=== PATIENT | male | born 1950 | race Caucasian/White ===

== ENCOUNTER 2017-08-01 12:15 | Emergency (ER) | payer MEDICARE, SELFPAY ==
[2017-08-01 12:17] VITALS: BP 191/90; PULSE 72; RESP 20; TEMP 36.9; O2SAT 97; BMI 35.6
[2017-08-01] MEDS: Ondansetron ODT 4 MG Tablet PO (12:47)
[2017-08-01] MEDS: HYDROcodone Bitartrate/Apap 5/325 Tablet PO (12:47)
--- NOTE | 2017-08-01 12:50 | RAD_ITS ---
STUDY: X-RAY CHEST REASON FOR EXAM: Male, 67 years old. Cough. TECHNIQUE: PA and lateral views of the chest. COMPARISON: None. FINDINGS: Minimal increased markings at the lung bases slightly more prominent in the lingular segment of the left upper lobe suggestive of bibasilar atelectasis. There is no demonstrated pleural abnormality. There is borderline cardiomegaly. Normal mediastinum and carl. Normal visualized pulmonary arteries. There is atherosclerotic tortuosity of the aortic arch and descending thoracic aorta. There are diffuse degenerative changes of the visualized thoracic spine. Normal visualized ribs, clavicles, and shoulders. There is no demonstrated abnormality of the visualized soft tissue structures of the upper abdomen. RAD/Chest PA and Lateral IMPRESSION: Findings suggest a mild degree of bibasilar linear atelectasis. Electronically Signed: John Mejia MD at 13:36 EDT Tel [phone], Service support ,
--- NOTE | 2017-08-01 12:50 | RAD_ITS ---
STUDY: X-RAY - LEFT FEMUR REASON FOR STUDY: Male, 67 years old. Lateral femoral pain following injury. TECHNIQUE: Radiological exam, femur, minimum 2 views COMPARISON: None. FINDINGS: Normal visualized femur. Normal visualized soft tissue structure. RAD/Femur Min 2 Views IMPRESSION: Normal x-ray examination of the femur. Electronically Signed: John Mejia MD at 13:37 EDT Tel [phone], Service support ,
--- NOTE | 2017-08-01 13:43 | ED.DCSUM_ITS ---
- ER Visit Summary Date of Service: 08/01/17 Chief Complaint: Left thigh pain History of Present Illness: The patient is a [address] Sharma. Patient reports that he felt he reports approximately 1 year ago and has had swelling to the proximal left thigh since that time. 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 States 2 weeks ago he fell out of his bed and that the areas been more swollen since then. He has pain Zeta 10 with movement 3 out of 10 at rest. Is not taking anything for pain. Review of systems patient reports that he has a cough productive white sputum without blood. Physical Examination: Vitals: Stable. Afebrile. General: Well-nourished and well-developed. Head: Normocephalic atraumatic. Neck: Supple, no lymphadenopathy. No JVD. Nontender. Cardiovascular: Regular rate and rhythm. No murmurs. Respiratory: No respiratory distress. Clear to auscultation bilaterally. Abdominal: Soft, nontender, nondistended, normal bowel sounds. No guarding, rebound, or peritoneal signs. Back: Nontender. Extremities: Approximately 7 cm x 7 9 cm firm mass to the lateral side of the proximal left thigh. There is overlying bruising. There is no erythema or fluctuance to suggest fluid collection.. Skin: Normal color, no rash. Neurologic: Alert and oriented ?3. Cranial nerves II through XII are intact. Normal strength and sensation. Psych: Normal affect. Test Results: Chest x-ray shows atelectasis but no infiltrate. X-ray of his left femur shows no fracture or acute disease. Emergency Department Course and Treatment: Patient is treated with [place] and Zofran. He is resting comfortably. Treatment Plan: To be discharged with [place] and instructed to follow-up Dr. Sharma in 1 week if not improving. Return to the emergency department for any worsening symptoms. Disposition: To home in improved and stable condition. Impression: 1. Myositis ossificans left eye. 2. URI. This note was generated with Pix[employer]D dictation software. It may contain incorrect words, spelling, and punctuation that were not noted in review of the chart prior to signing ED Disposition - Plan for ED Patient: Disposition: Home or Assisted Living Chief Complaint: Lower Extremity Injury Instructions: ED Hematoma Prescriptions: Hydrocodone Bitart/Apap 5-325 [[place] 5/325] 1 - 2 tablet PO Q4H PRN PRN 5 Days # 20 tablet PRN Reason: Pain Ondansetron [Zofran Odt] 4 mg PO Q8H PRN PRN #10 tablet PRN Reason: Nausea Docusate Sodium [Colace] 100 mg PO DAILY #20 capsule Referrals: Taye Sharma MD [Primary Care Provider] - 1 Week if not improving
[2017-08-01 14:30] VITALS: BP 135/74
== END 2017-08-01 14:30 | disposition home or self-care (01) ==
PROVIDERS: Emergency Provider Emergency Medicine; Family Provider Family Medicine; PCP Family Medicine
DX: M61.552 Other ossification of muscle, left thigh (principal); J06.9 Acute upper respiratory infection, unspecified; J45.909 Unspecified asthma, uncomplicated; K21.9 Gastro-esophageal reflux disease without esophagitis; I69.351 Hemiplegia and hemiparesis following cerebral infarction affecting right dominant side; I10 Essential (primary) hypertension; E11.9 Type 2 diabetes mellitus without complications
CPT/HCPCS: 71046; 73552; 99282

== ENCOUNTER 2017-08-04 20:52 | Emergency (ER) | payer MEDICARE, SELFPAY ==
[2017-08-04 20:53] VITALS: BP 193/107; PULSE 79; RESP 19; TEMP 36.1; O2SAT 95; BMI 35.4
--- NOTE | 2017-08-04 20:59 | CT_ITS ---
STUDY: CT BRAIN WITHOUT CONTRAST REASON FOR EXAM: Male, 67 years old. Headache, hypertension RADIATION DOSAGE (If Supplied By Facility): CTDIvol = ( 44.99 ) mGy, DLP = ( 796.11 ) mGycm TECHNIQUE: Transaxial CT imaging of the brain was performed without administration of intravenous contrast material. Sagittal and coronal images are reformatted. Individualized dose optimization techniques were used for this CT. COMPARISON: 01/24/2017. FINDINGS: Normal soft tissue structures. Normal calvarium. There is mild cerebral atrophy with widening of the extra-axial spaces and ventricular dilatation. Stable ex vacuo dilatation of the occipital horn of the left lateral ventricle with encephalomalacia. There are areas of decreased attenuation within the white matter tracts of the supratentorial brain, consistent with microvascular disease changes. Normal basal ganglia and thalami. Normal brainstem. Normal cerebellum. There is no intracranial hemorrhage. There are no findings of an acute ischemic infarction. Normal visualized paranasal sinuses. CT/Brain/Head without Contrast IMPRESSION: Chronic involutional changes of the brain. No acute intracranial process. Electronically Signed: Danilo Morrison DO at 21:51 EDT , Service support ,
--- NOTE | 2017-08-04 21:00 | EKG12_ITS ---
Test Reason : CHEST PAIN Blood Pressure : / mmHG Vent. Rate : 071 BPM Atrial Rate : 071 BPM P-R Int : 184 ms QRS Dur : 106 ms QT Int : 414 ms P-R-T Axes : 042 -07 067 degrees QTc Int : 449 ms Normal sinus rhythm Nonspecific ST abnormality Abnormal ECG Confirmed by ALEK DE SOUZA ([id number]), commercial production editor FABIENNE JOLLEY ([id number]) on 08/07/2017 1:27:52 PM Referred By: EUGENE Confirmed By:ALEK DE SOUZA
[2017-08-04 21:26] LABS: Absolute Lymphocyte Count 2.04 X10^3/ul (0.83-4.51); Absolute Neutrophil Count 4.5 X10^3/uL (2.0-7.7); Basophil# 0.04 X10^3/uL; Basophil% 0.5 % (0-1); Eosinophil# 0.84 X10^3/uL; Eosinophils% 10.3 % (0-5); Hematocrit 43.8 % (40-54); Lymphocyte # 2.04 X10^3/ul (4.0); Lymphocyte % 24.9 % (19-41); Mean Corp Hgb Conc 34.2 g/gl (32-36); Mean Corpuscular Hgb 29.2 pg (27.0-32.0); Mean Corpuscular Volume 85.2 fL (80-94); Mean Platelet Vol. 10.5 fl (6.2-12.0); Monocyte# 0.72 X10^3/uL; Monocyte% 8.8 % (0-10); Neutrophil # 4.54 X10^3/uL (2.7-7.7); Neutrophil % 55.4 % (47-70); Platelet Count 238 K/mm3 (150-450); RBC Distribution Width CV 12.7 % (11.6-14.6); RBC Distribution Width SD 38.8 fl (35.1-43.9); Red Blood Count 5.14 M/mm3 (4.6-6.2); White Blood Count 8.2 K/mm3 (4.4-11.0)
[2017-08-04 21:27] LABS: POSITIVE COUNT NO; POSITIVE DIFFERENTIAL NO; POSITIVE MORPHOLOGY NO
--- NOTE | 2017-08-04 21:30 | RAD_ITS ---
STUDY: X-RAY CHEST REASON FOR EXAM: Male, 67 years old. Hypertension TECHNIQUE: Frontal and lateral views of the chest. COMPARISON: 08/01/2017. FINDINGS: The lungs are expanded. Unchanged hazy lingular opacity. There is no demonstrated pleural abnormality. Normal size heart. Normal mediastinum and carl. Normal visualized pulmonary arteries. Normal visualized aortic arch and descending thoracic aorta. Normal visualized thoracic spine. Normal visualized ribs, clavicles, and shoulders. There is no demonstrated abnormality of the visualized soft tissue structures of the upper abdomen. RAD/Chest PA and Lateral IMPRESSION: Lingular atelectasis/infiltrate. No significant change. Electronically Signed: Danilo Morrison DO at 21:57 EDT , Service support ,
[2017-08-04 21:34] LABS: International Normalized Ratio 0.9; Prothrombin Time (Protime)PT. 12.4 SECONDS (11.7-14.9)
[2017-08-04 21:35] LABS: Partial Thromboplast Time 28.4 Seconds (24.1-36.2)
[2017-08-04 21:47] LABS: Anion Gap 7 (5-15); BUN 20 mg/dL (7-18); BUN/Creat Ratio 21.9 RATIO (10-20); Chloride 104 mmol/L (98-107); Creatinine, Serum 0.91 mg/dL (0.70-1.30); EST Glomerular Filtration Rate 88 mL/min (>60); Est Glom Filt Rate - Afr Amer 106 mL/min (>60); Estimated Creatinine Clearance 72.64 ml/min; Glucose 200 mg/dL (74-106); Potassium 3.6 mmol/L (3.5-5.1); Sodium Level 140 mmol/L (136-145)
[2017-08-04 22:05] VITALS: BP 149/70; PULSE 65; RESP 15
[2017-08-04 22:15] LABS: Bedside Glucose 201 mg/dL (70-110)
[2017-08-04 22:37] VITALS: BP 173/76; PULSE 65; RESP 12; O2SAT 95
[2017-08-04 22:43] VITALS: O2SAT 94
--- NOTE | 2017-08-04 22:45 | NURSING ---
PATIENT HAD PAST STROKE IN OCTOBER OF LAST YEAR. DOCTOR AT THE BEDSIDE CURRENTLY. NIH IS 3 FROM RESIDUAL AFFECTS OF STROKE.
--- NOTE | 2017-08-04 22:48 | ED.VISSUMM ---
- ER Visit Summary Date of Service: 08/04/17 Chief Complaint: Acute on chronic hypertension with cephalgia History of Present Illness: The patient is a 67 M prior stroke in 2017. Treated for hypertension. On Plavix and aspirin. Reportedly patient had an elevated blood pressure this evening. Had a headache associated with it. And some blurred vision. The headache and blurred vision both totally resolved. He had no trouble moving his arms or legs. He had no slurred speech. Due to the acuity and volume in emergency department nurses started triage protocol orders. Physical Examination: Well-appearing older male. Initial blood pressure 149/70 temperature 96.1 heart rate 65. Pulse ox 95% room air no signs of hypoxia. He is in no acute distress. States is feeling better. HEENT exam unremarkable. Pupils round reactive light. No facial droop. Normal speech. Lungs clear to auscultation bilaterally. Heart regular rhythm no murmur. Abdomen soft nontender. He is moving all 4 extremities. They are neurovascularly intact. 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 Dorsi plantar flexion intact. Neurologically is awake and alert. No focal motor deficits. Fingertip to nose within normal limits bilaterally. Dorsi plantar flexion intact. Currently his NIH score is 0. Test Results: Nurses started protocol orders in triage. CBC normal. BMP unremarkable. Glucose 200. PT/INR normal. EKG sinus rhythm rate is 71 with no acute abnormality. Chest x-ray showed chronic changes no acute process. CAT scan of his brain showed no bleed. No acute stroke. This is read by the radiologist and reviewed by me. Emergency Department Course and Treatment: On exam the patient is doing well. His neurologic exam is completely normal. I had long discussion with he and family. They are comfortable with him being discharged home. His current blood pressure is 173/71. He takes blood pressure medication both in the morning and in the evening will take his second dose today when he goes home. They are going to log his blood pressure twice daily and follow-up with his primary care physician Dr. Fox for further evaluation next week. Treatment Plan: Discharge to home. Disposition: Discharge Impression: Acute on chronic hypertension with acute cephalgia that resolved History of prior CVA History of ehg-fvrezqk-vnhpwxsne diabetes This note was generated with OneIDation software. It may contain incorrect words, spelling, and punctuation that were not noted in review of the chart prior to signing ED Disposition - Plan for ED Patient: Chief Complaint: Hypertension Referrals: Taye Sharma MD [Primary Care Provider] -
--- NOTE | 2017-08-04 22:52 | ED.DCSUM_ITS ---
- ER Visit Summary Date of Service: 08/04/17 Chief Complaint: Acute on chronic hypertension with cephalgia History of Present Illness: The patient is a 67 M prior stroke in 2017. Treated for hypertension. On Plavix and aspirin. Reportedly patient had an elevated blood pressure this evening. Had a headache associated with it. And some blurred vision. The headache and blurred vision both totally resolved. He had no trouble moving his arms or legs. He had no slurred speech. Due to the acuity and volume in emergency department nurses started triage protocol orders. Physical Examination: Well-appearing older male. Initial blood pressure 149/70 temperature 96.1 heart rate 65. Pulse ox 95% room air no signs of hypoxia. He is in no acute distress. States is feeling better. HEENT exam unremarkable. Pupils round reactive light. No facial droop. Normal speech. Lungs clear to auscultation bilaterally. Heart regular rhythm no murmur. Abdomen soft nontender. He is moving all 4 extremities. They are neurovascularly intact. He has 5 out of 5 brazer furnace strength. Dorsi plantar flexion intact. Neurologically is awake and alert. No focal motor deficits. Fingertip to nose within normal limits bilaterally. Dorsi plantar flexion intact. Currently his NIH score is 0. Test Results: Nurses started protocol orders in triage. CBC normal. BMP unremarkable. Glucose 200. PT/INR normal. EKG sinus rhythm rate is 71 with no acute abnormality. Chest x-ray showed chronic changes no acute process. CAT scan of his brain showed no bleed. No acute stroke. This is read by the radiologist and reviewed by me. Emergency Department Course and Treatment: On exam the patient is doing well. His neurologic exam is completely normal. I had long discussion with he and family. They are comfortable with him being discharged home. His current blood pressure is 173/71. He takes blood pressure medication both in the morning and in the evening will take his second dose today when he goes home. They are going to log his blood pressure twice daily and follow-up with his primary care physician Dr. Fox for further evaluation next week. Treatment Plan: Discharge to home. Disposition: Discharge Impression: Acute on chronic hypertension with acute cephalgia that resolved History of prior CVA History of xgq-autucva-qqmbblhqi diabetes This note was generated with [employer] Heraldation software. It may contain incorrect words, spelling, and punctuation that were not noted in review of the chart prior to signing ED Disposition - Plan for ED Patient: Chief Complaint: Hypertension Referrals: Taye Sharma MD [Primary Care Provider] -
--- NOTE | 2017-08-04 22:52 | ED.DEP ---
ED Disposition - Plan for ED Patient: Chief Complaint: Hypertension Instructions: ED Hypertension Conf Out Of Control Referrals: Taye Sharma MD [Primary Care Provider] - 5-7 Days Additional Instructions: Take your normal blood pressure medications tonight prior to going to bed. Log your blood pressures twice daily and follow-up with Dr. Sharma with these readings so that he may appropriately manage her blood pressure medications. He may or may not need to adjust the dosage.
[2017-08-04 23:01] VITALS: BP 163/70; PULSE 62; PULSE 63; RESP 14; RESP 15; O2SAT 94; O2SAT 95
== END 2017-08-04 23:18 | disposition home or self-care (01) ==
LOC: ED 23:09
PROVIDERS: Emergency Provider Emergency Medicine; Family Provider Family Medicine; PCP Family Medicine
DX: I10 Essential (primary) hypertension (principal); R51 Headache; H53.8 Other visual disturbances; E11.9 Type 2 diabetes mellitus without complications; R05 Cough; Z86.73 Personal history of transient ischemic attack (TIA), and cerebral infarction without residual deficits; R94.31 Abnormal electrocardiogram [ECG] [EKG]
CPT/HCPCS: 70450; 71046; 80048; 82962; 85025; 85610; 85730; 93005; 99284; A4216

== ENCOUNTER 2017-08-28 14:55 | Emergency (ER) | payer MEDICARE, SELFPAY ==
[2017-08-28 14:56] VITALS: BP 149/88; PULSE 99; RESP 16; TEMP 36.7; O2SAT 95; BMI 34.4
--- NOTE | 2017-08-28 15:16 | EKG12_ITS ---
Test Reason : GENERAL ILLNESS Blood Pressure : / mmHG Vent. Rate : 099 BPM Atrial Rate : 099 BPM P-R Int : 170 ms QRS Dur : 098 ms QT Int : 360 ms P-R-T Axes : 019 -21 047 degrees QTc Int : 462 ms Normal sinus rhythm Normal ECG Confirmed by SHIRLEY CORNEJO, RIA ([id number]), acquisition editor FABIENNE JOLLEY ([id number]) on 08/31/2017 1:55:29 PM Referred By: AZAR Confirmed By:RIA WATSON MD
--- NOTE | 2017-08-28 15:16 | CT_ITS ---
STUDY: CT BRAIN WITHOUT CONTRAST REASON FOR EXAM: Male, 67 years old. DIZZINESS RADIATION DOSAGE (If Supplied By Facility): CTDIvol = ( 44.99 ) mGy, DLP = ( 829.85 ) mGycm TECHNIQUE: Transaxial CT imaging of the brain was performed without administration of intravenous contrast material. COMPARISON: 08.04.17 FINDINGS: Normal soft tissue structures. Normal calvarium. There are calcifications around the carotid artery. These are noted in the cavernous carotid arteries. Old left occipital lobe infarct. There is mild cerebral atrophy with widening of the extra-axial spaces and ventricular dilatation. There are areas of decreased attenuation within the white matter tracts of the supratentorial brain, consistent with microvascular disease changes. Normal basal ganglia and thalami. Normal brainstem. There is mild cerebellar atrophy. There is no intracranial hemorrhage. There are no findings of an acute ischemic infarction. Normal visualized paranasal sinuses. CT/Brain/Head without Contrast IMPRESSION: Chronic involutional changes of the brain. There are no acute findings. Electronically Signed: Filiberto Sawant MD at 17:17 EDT , Service support ,
--- NOTE | 2017-08-28 15:16 | RAD_ITS ---
STUDY: X-RAY CHEST REASON FOR EXAM: Male, 67 years old. Dizziness. TECHNIQUE: Single AP portable view of the chest. COMPARISON: Comparison is made with prior study dated August 04, 2017. FINDINGS: There is elevation of the right hemidiaphragm. Scattered calcified granulomas. No acute abnormality is seen. There is no demonstrated pleural abnormality. Normal size heart. Normal mediastinum and carl. Normal visualized pulmonary arteries. Normal visualized aortic arch and descending thoracic aorta. There are diffuse degenerative changes of the visualized thoracic spine. Normal visualized ribs, clavicles, and shoulders. There is no demonstrated abnormality of the visualized soft tissue structures of the upper abdomen. RAD/Chest 1 View (Portable) IMPRESSION: No acute abnormality is seen. Electronically Signed: John Mejia MD at 15:38 EDT Tel [phone], Service support ,
--- NOTE | 2017-08-28 15:17 | CT_ITS ---
STUDY: CT ABDOMEN AND PELVIS WITH CONTRAST REASON FOR EXAM: Male, 67 years old. ABD PAIN, LUMP NEAR LEFT HIP[ RADIATION DOSAGE (If Supplied By Facility): CTDIvol = ( 19.35 ) mGy, DLP = ( 1469.15 ) mGycm TECHNIQUE: Transaxial images were obtained from the dome of the diaphragm to the symphysis pubis without oral contrast. 100ML ml of Isovue 300 contrast was administered. Sagittal and coronal images were reconstructed. Individualized dose optimization techniques were used for this CT. COMPARISON: None. FINDINGS: There are multiple nodules in the right midlung and lower lobe. The largest measures 24 mm. The visualized portions of the heart are within normal limits. Normal liver. Normal gallbladder and extrahepatic biliary system. Normal spleen. Normal pancreas. Normal bilateral adrenal glands. Normal right kidney. Normal left kidney. Normal visualized stomach. Normal small intestine. There are multiple colonic diverticula consistent with diverticulosis. There is non-visualization of the appendix. There is diffuse atherosclerotic calcification of the abdominal aorta, without a demonstrated aneurysm. Normal inferior vena cava. Normal retroperitoneum. Normal urinary bladder. There is enlargement of the prostate gland. Degenerative findings of the hips. There are bilateral inguinal hernias containing fat. There is no bowel involvement. There is no incarceration. There is no findings suggesting that this is causing a bowel obstruction. There are diffuse degenerative changes of the visualized lumbar spine. There is a heterogeneously enhancing mass in the soft tissue of the left hip. This measures 97 x [address]/Abdomen/Pelvis W IV Cont ONLY IMPRESSION: There are multiple lesions noted in the lung which are likely related to metastatic disease. There is a large mass in the left hip soft tissue concerning for a neoplasm. This may be a sarcoma. N.B. : The above information has been verbally conveyed by Filiberto Sawant MD to Chandler Flanagan on 08/28/2017 17:42:58 (ET). Electronically Signed: Filiberto Sawant MD at 17:37 EDT , Service support , N.B. : The above information has been verbally conveyed by Filiberto Sawant MD to Chandler Flanagan on 08/28/2017 17:42:58 (ET).
--- NOTE | 2017-08-28 15:29 | ED.DCSUM_ITS ---
- ER Visit Summary Date of Service: 08/28/17 Chief Complaint: Multiple complaints History of Present Illness: The patient is a 67 M results with nausea, vomiting , diarrhea, dizziness, and sweats. Symptoms started this morning. He is also seeing spots in front of his eyes. This affects both eyes and all joseph of vision. He thinks this is related to high blood pressure. He also reports a left upper thigh mass, and this was imaged several months ago and it was thought to be myositis ossificans. History of stroke and is on blood thinners, and so surgeons did not feel it was prudent to operate on this mass. He denies any focal weakness or numbness today. Denies any new neurologic symptoms otherwise. Denies chest pain or shortness of breath. Physical Examination: Blood pressure 149/88. Otherwise vitals unremarkable. Afebrile. Skin appears normal without diaphoresis or pallor. Heart regular rate and rhythm. Lungs clear bilaterally. Abdomen soft and nontender. Left proximal lateral thigh shows a softball sized mass with mild ecchymosis. Skin is intact. He is neurovascular intact distally. No focal or lateralizing neurologic abnormalities grossly. Test Results: EKG, lab work, and imaging pending at the time of dictation. Emergency Department Course and Treatment: Patient was treated with fluids and Zofran while awaiting results. Lab work was all fairly unremarkable except his lipase is 671. Head CT showed chronic changes. Chest x-ray was unremarkable. CT abdomen and pelvis showed a left upper leg mass concerning for sarcoma. There is also concern for metastatic disease to his lung bases. Talked with orthopedics here. We are unable to care for a patient with a soft tissue malignancy appropriately at this facility. I am also concerned because he has this nausea, vomiting, diarrhea, and dizziness. His lipase is elevated. I believe he will need a medical admission either way. I spoke with the patient and his family. They requested [facility]. The hospitalist, Dr. Joseph, accepted the patient and they will consult orthopedics. Treatment Plan: As above Disposition: Transfer Impression: 1. 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 Elevated lipase This note was generated with [employer].ruation software. It may contain incorrect words, spelling, and punctuation that were not noted in review of the chart prior to signing ED Disposition - Plan for ED Patient: Disposition: [facility] Chief Complaint: General Illness Referrals: Taye Sharma MD [Primary Care Provider] -
[2017-08-28] MEDS: 0.9% Normal Saline 1,000 ML 1000 ML IV (15:50)
[2017-08-28] MEDS: Ondansetron 4 MG/2 ML Vial IV ×2 (15:51→20:38)
[2017-08-28 15:59] LABS: Absolute Lymphocyte Count 0.69 X10^3/ul (0.83-4.51); Absolute Neutrophil Count 9.6 X10^3/uL (2.0-7.7); Basophil# 0.02 X10^3/uL; Basophil% 0.2 % (0-1); Eosinophil# 0.69 X10^3/uL; Eosinophils% 5.9 % (0-5); Hematocrit 47.8 % (40-54); Hemoglobin 16.1 g/dl (13.0-16.5); Lymphocyte # 0.69 X10^3/ul (4.0); Lymphocyte % 5.9 % (19-41); Mean Corp Hgb Conc 33.7 g/gl (32-36); Mean Corpuscular Hgb 28.8 pg (27.0-32.0); Mean Corpuscular Volume 85.5 fL (80-94); Mean Platelet Vol. 10.5 fl (6.2-12.0); Monocyte# 0.74 X10^3/uL; Monocyte% 6.3 % (0-10); Neutrophil # 9.62 X10^3/uL (2.7-7.7); Neutrophil % 81.5 % (47-70); Platelet Count 213 K/mm3 (150-450); RBC Distribution Width SD 40.4 fl (35.1-43.9); Red Blood Count 5.59 M/mm3 (4.6-6.2); White Blood Count 11.8 K/mm3 (4.4-11.0)
[2017-08-28 16:01] LABS: POSITIVE COUNT NO; POSITIVE DIFFERENTIAL NO; POSITIVE MORPHOLOGY NO
[2017-08-28 16:23] LABS: AST(SGOT) 15 U/L (15-37); Alanine Aminotransfer ALT/SGPT 22 U/L (16-61); Albumin, Serum 3.9 g/dL (3.2-5.0); Alkaline Phosphatase 74 U/L (45-117); Anion Gap 8 (5-15); BUN 23 mg/dL (7-18); BUN/Creat Ratio 24.5 RATIO (10-20); Chloride 99 mmol/L (98-107); Creatinine, Serum 0.94 mg/dL (0.70-1.30); EST Glomerular Filtration Rate 85 mL/min (>60); Est Glom Filt Rate - Afr Amer 103 mL/min (>60); Estimated Creatinine Clearance 70.32 ml/min; Globulin 3.8 g/dL (2.2-4.2); Glucose 180 mg/dL (74-106); Lipase 671 U/L (73-393); Potassium 3.9 mmol/L (3.5-5.1); Protein, Total 7.7 g/dL (6.4-8.2); Sodium Level 137 mmol/L (136-145)
[2017-08-28] MEDS: Morphine 4 MG/ML Syringe IV ×2 (16:59→20:38)
[2017-08-28 17:03] VITALS: BP 133/76; PULSE 61; RESP 15; O2SAT 98
[2017-08-28 19:49] VITALS: BP 143/57; PULSE 58; RESP 18; O2SAT 95
--- NOTE | 2017-08-28 21:04 | NURSING ---
REPORT CALLED TO CAMILO ON 5400 AT [facility].
== END 2017-08-28 20:20 | disposition short-term general hospital (02) ==
LOC: ED 16:05
PROVIDERS: Emergency Provider Emergency Medicine; Family Provider Family Medicine; PCP Family Medicine
DX: C76.52 Malignant neoplasm of left lower limb (principal); C78.00 Secondary malignant neoplasm of unspecified lung; R74.8 Abnormal levels of other serum enzymes; E11.9 Type 2 diabetes mellitus without complications; I10 Essential (primary) hypertension; K21.9 Gastro-esophageal reflux disease without esophagitis; E78.00 Pure hypercholesterolemia, unspecified; Z86.73 Personal history of transient ischemic attack (TIA), and cerebral infarction without residual deficits
CPT/HCPCS: 70450; 71045; 74177; 80053; 83690; 84484; 85025; 93005; 96361; 96374; 96375; 96376; 99284; J7030; Q9967; A4216; J2405